=== PATIENT | female | born 1970 | race Caucasian/White ===

== ENCOUNTER 2023-05-05 10:53 | Outpatient (CLI) | payer OTHER, SELFPAY | END 2023-05-05 10:54 | disposition home or self-care (01) | PROVIDERS: Visit Provider Family Medicine | DX: I10 Essential (primary) hypertension (principal); R10.13 Epigastric pain; G89.29 Other chronic pain | CPT/HCPCS: 80053; 86140 ==

== ENCOUNTER 2023-05-13 06:28 | Outpatient (CLI) | payer OTHER, SELFPAY ==
--- NOTE | 2023-05-13 07:55 | W.ANESCHARGE ---
Anesthesia Charges Start Date/Time Anesthesia Start Date: 05/13/23 Anesthesia Start Time: 07:15 Stop Date/Time Anesthesia Stop Date: 05/13/23 Anesthesia Stop Time: 07:37
--- NOTE | 2023-05-13 11:41 | W.ANESCHARGE ---
Anesthesia Charges Start Date/Time Anesthesia Start Date: 05/13/23 Anesthesia Start Time: 07:15 Stop Date/Time Anesthesia Stop Date: 05/13/23 Anesthesia Stop Time: 07:37
== END 2023-05-13 06:29 | disposition home or self-care (01) ==
LOC: OP CLINIC 06:28
PROVIDERS: PCP Family Medicine; Visit Provider Surgery
DX: R19.8 Other specified symptoms and signs involving the digestive system and abdomen (principal)
CPT/HCPCS: 00731; 43235; J2704; J3490

== ENCOUNTER 2023-05-14 08:31 | Outpatient (CLI) | payer OTHER, SELFPAY ==
--- NOTE | 2023-05-14 09:00 | CRLHL7_ITS ---
For Patients: As a result of the Century Cures Act, medical imaging exams and procedure reports are released immediately into your electronic medical record. You may view this report before your referring provider. If you have questions, please contact your health care provider. Indication: EPIGASTRIC PAIN Technique: Postcontrast CT abdomen and pelvis. 55 cc Isovue 370 intravenous contrast. Please note that all CT scans at this facility use dose modulation, iterative reconstruction, and/or weight-based dosing when appropriate to reduce radiation dose to as low as reasonably achievable. Comparison: None Findings: Lung bases are clear. No intrahepatic masses. Spleen is normal. No ascites. Adrenal glands normal. Nonobstructing stone upper pole right kidney measuring 4.1 millimeters. Left kidney normal. The pancreas is normal. Normal gallbladder. The bladder is normal. Normal uterus and ovaries. The appendix is normal. No bowel obstruction or free fluid. No abscess. Degenerative disc disease L5-S1 with discogenic sclerosis. No fracture. Degenerative changes at both hips. Impression: Nonobstructing 4.1 millimeter stone right kidney. Degenerative disc disease L5-S1 and degenerative joint disease of both hips. Please note that all CT scans at this facility use dose modulation, iterative reconstruction, and/or weight-based dosing when appropriate to reduce radiation dose to as low as reasonably achievable. Dictated by Montez Ambrose MD @ 05/14/2023 12:56:51 PM (Electronically Signed)
== END 2023-05-14 08:32 | disposition home or self-care (01) ==
LOC: CT 08:32
PROVIDERS: PCP Family Medicine; Visit Provider Family Medicine
DX: R10.13 Epigastric pain (principal); N20.0 Calculus of kidney; M51.37 Other intervertebral disc degeneration, lumbosacral region; G89.29 Other chronic pain; Z80.0 Family history of malignant neoplasm of digestive organs
CPT/HCPCS: 74177; Q9967

== ENCOUNTER 2023-11-27 08:06 | Outpatient (CLI) | payer OTHER, SELFPAY ==
--- OUTSIDE RECORDS SUMMARY | 2023-12-01 13:39 | XMS_ITS | Clinical Summary ---
Author Organization [facility] Address [place], [place] [address] Care Team Providers Care Clerical Office Name Role Phone Quin Velasco MD Primary Care Provider Allergies Active Allergy Reactions Criticality Noted Date Comments Miconazole Nitrate Vaginal Irritation High 4 used monostat in her 20's had severe topical reaction. 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 0 0 Active triamcinolone (ARISTOCORT; KENALOG) 0.1 % creamIndication s:Chronic eczema Apply topically to affected area(s) 2 times daily. 80 g 2 Active lisinopriL (PRINIVIL; ZESTRIL) 10 mg tabletIndicatio ns:HTN (hypertension) TAKE 1 TABLET DAILY 90 Tablet 4 Active EPINEPHrine (EPIPEN) 0.3 mg/0.3 mL auto-injectorIn dications:Nut allergy Inject 0.3 mg intramuscularly one time if needed for Allergic Reaction. 2 Each 4 Active EPINEPHrine (EPIPEN) 0.3 mg/0.3 mL auto-injectorIn dications:Nut allergy Inject 0.3 mg intramuscular one time if needed for Allergic Reaction. 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 Encounters Date Type Department Care Team Description 11/26/2023 Telephone [facility] [address] [place] [phone] Zenobia Hutton, PhD, LP Referral (Psychology) 11/07/2023 7:30 AM CDT Telemedicine [facility] [address] [place] [phone] Zenobia Hutton, PhD, LP [facility] Plan 11/03/[address] [address] Quin Velasco MD Refill Request (Epinephrine) 10/16/2023 9:25 AM CDT Office Visit [address] [address] Kayleigh Krishnan PA Throat Problem 10/16/2023 Travel 10/15/2023 Refill [facility] [address] [place] [address] Quin Velasco MD Refill Request (Lisinopril) from Last 3 Months Immunizations Name Administration Dates Next Due AMB Influenza, (Flumist) Telma e Intranasal,LAIV4 (Flu Clinic Only) 03/31/2013 AMB Influenza, IIV3 (Age >=3 years)(Flu Clinic Only) 04/08/2011 AMB Influenza, IIV4 PF (=>6 mos Flulaval,Fluzone Fluarix)(Flu Clinic Only) 04/11/2016 COVID-19 vaccine (Moderna 100mcg/0.5mL) PF, MDV 04/30/2021,08/16/2020,07/19/2020 Hepatitis B (Adult) 04/08/2011 Influenza RIV4 (Age 18+ Year s) PRESERV FREE 04/03/2022,03/06/2021 Influenza, IIV3 (Age >=3 years) 03/27/2010,05/08,04/12/2004 Influenza, IIV4 03/09/2020,03/21/2015,05/23/2014 Influenza, IIV4 (=>6mos) MDV 03/20/2023, 03/10/2019,04/03/2018, 017 Influenza,LAIV4 Live Intrana ramila (Flumist) 04/07/2012 Td (Age >=7 Years) 11/12/2002 Tdap 06/07/2021,07/04/2011 Zoster (Shingrix-RZV, recombinant) 06/07/2021, Family History Medical History Relation Name Comments Diabetes Brother 1 Cancer Brother 2 hodgkins lympho ma Cancer Brother 3 stomach; Stage 4 Other Brother 4 colon polyp Hyperlipidemia Father Hypertension Father Other Father etoh abuse Stroke Father Diabetes Maternal Aunt 1 Diabetes Maternal Aunt 2 Cancer Maternal Grandmother uterine and breast Cancer-breast Maternal Grandmother Diabetes Maternal Grandmother Osteoporosis Maternal Grandmother Alcohol/Drug Paternal Grandfather Cancer-ovarian No Family History Relation Name Status Comments Brother 1 Brother 2 Brother 3 Brother 4 Father Maternal Aunt 1 Maternal Aunt 2 Maternal Grandmother Paternal Grandfather Social History Tobacco Use Types Packs/Day Years Used Date Smoking Tobacco: Never Smokeless Tobacco: Never Tobacco Cessation:Counseling Given: Yes Alcohol Use Standard Drinks/Week Comments Yes 0 (1 standard drink = 0.6 oz pure alcohol) 1-2 drinks daily - working on cutting this down PHQ-2 Answer Date Recorded PHQ-2 TOTAL SCORE 0 10/10/2022 Social Connections Answer Date Recorded Frequency of Communication with Friends and Fami ly 0 07/16/2023 Financial Resource Strain Answer Date R ecorded Difficulty of Paying Living Expenses 3 07/16/2023 Difficulty of Paying Living Expenses Not on file 07/16/2023 Food Insecurity Answer Date Recorded Worried About Running Out of Food in the Last Ye ar 1 07/16/2023 Transportation Needs Answer Date Record ed Lack of Transportation (Medical) 1 07/16/2023 Housing Stability Answer Date Recorded Unable to Pay for Housing in the Last Year 1 07/16/2023 Sex and Gender Information Value Date Recorded Sex Assigned at Not on file Gender Identity Not on file Sexual Orientation Not on file Obstetrics History Para Term AB IAB SAB Ectopic Multiple Livin g Live Births 4 2 1 1 3 Date Outcome GA Total Labor Labor/2nd/3rd Weight Sex Type Anes PTL Telma A1 A5 Name Clin SAB IAB Last Filed Vital Signs Vital Sign Reading Time Taken Comments Blood Pressure 130/91 10/16/2023 9:20 AM CDT Pulse 84 10/16/2023 9:20 AM CDT Temperature 36.8 ??C (98.3 ??F) 10/16/2023 9:20 AM CD T Respiratory Rate 16 07/16/2023 9:44 AM [employer]ER Oxygen Saturation 100% 10/16/2023 9:20 AM CDT Inhaled Oxygen Concentration - - Weight 74.8 kg (165 lb) 10/16/2023 9:20 AM CDT Height 165.1 cm (5' 5) 07/16/2023 9:44 AM [employer]ER Body Mass Index 27.46 07/16/2023 9:44 AM [employer]ER [employer]AKER Plan of Treatment Upcoming Encounters Date Type Department Care Team (Late st Contact Info) Description 12/04/2023 2:00 PM CDT Telemedicine [facility] [address] [place] [address] Chris Kwok, [facility] [address] [place] [address] Health Maintenance Due Date Last Done Comments Depression screening for age 12+ 10/11/2023 10/10/2022, 06/07/2021, 09/03/2018, Additional history exists Mammogram for age 45-75 10/11/2023 10/11/19, 06/07/2021, 04/24/2020, Additional history exists Influenza for age 50-64 02/22/2024 03/20/20, 04/03/2022, 03/06/2021, Additional history exists BMI (ht and wt on same day) for age 18+ 07/16/2024 07/16/2023, 12/05/2022, 10/10/2022, Additional history exists Lipids for age 45-75 11/03/2025 11/03/2020, 01/08/2019, 09/03/2016, Additional history exists Colonoscopy through age 75 11/22/202611/22, 11/22/2021, 11/22/2021, Additional history exists Pap test for age 21-65 10/11/2027 , 10/10/2022, 09/03/2016, Additional history exists Tetanus booster 06/07/2031 06/07/2021, 06/23, 11/12/2002 Tdap Completed 06/07/2021, 07/04/2011 Zoster (shingles) series for age 50+ Completed 06/07/2021, 11/03/2020 HIV for age 15-65 Completed 10/10/2022 Hepatitis C screening for age 18-79 Completed 10/10/2022 COVID-19 vaccine series Completed 04/18/20, 09/29/2021, 04/30/2021, Additional history exists Pneumococcal series for age 6-64 Aged Out No longer eligible based on patient's age to complete this topic Procedures Procedure Name Priority Date/Time Associated Diagnosis Comments THROAT RAPID STREP ONLY CLINIC Routine 10/16/2023 9:16 AM CDT Sore throat XR MAMMO VELIA BILAT SCREEN Routine 10/10/2022 11:42 AM CDT Visit for screening mammogram LC HIV-1/O/2, 4TH GENERATION Routine 10/10/2022 11:29 AM CDT Screening for HIV (human immunodeficiency virus) LC HCV ANTIBODY RFX TO QUANT PCR Routine 10/10/2022 11:29 AM CDT Need for hepatitis C screening test HPV THIN PREP Routine 10/10/2022 11:10 AM CDT Screening for cervical cancer COLONOSCOPY SCREENING Routine 11/22/2021 8:43 AM CDT Screening for colon cancer LIPID PANEL W REFLEX MEASURED LDL Routine 11/03/2020 3:28 PM CDT Lipid screening from Last 3 Months or Most Recently Relevant to Health Maintenance Results * THROAT RAPID STREP ONLY CLINIC (10/16/2023 9:16 AM CDT) THROAT RAPID STREP A ANTIGEN Negative 10/16/2023 9:26 AM CDT [facility] Throat SPECIMEN FROM THROAT / Unknown Non-Blood / Unknown 10/16/2023 9:16 AM CDT 10/16/2023 9:18 AM CDT Kayleigh CHASE MICROBIOLOGY [facility] [address] [place] [address], * XR MAMMO VELIA BILAT SCREEN (10/10/2022 11:42 AM CDT) Anatomical Region Laterality Modality BREASTS, Breast Left, Breast Right Bilateral Mammography Impressions 10/10/2022 4:00 PM CDT ??There is no radiographic evidence for malignancy. ??Recommend annual mammograms. MAMMOGRAM ASSESSMENT: ??ACR 1 Negative PATIENTS: You will also receive a letter with your examination results in an easy to read format. ??If you have questions about your results, please contact your referring provider. Narrative 10/10/2022 4:00 PM CDT For Patients: As a result of the Cures Act, medical imaging exams and procedure reports are released immediately into your electronic medical record. You may view this report before your referring provider. If you have questions, please contact your health care provider. XR MAMMO VELIA BILAT SCREEN [[id number]] CLINICAL HISTORY: ??This is an asymptomatic 52 y.o. patient. INDICATION FOR EXAM: Mammogram Screening. TECHNIQUE: CC & MLO views were obtained. ??This study was evaluated with the assistance of Computer-Aided Detection. Breast Tomosynthesis was used in interpretation. COMPARISON FILM: Yes 06/07/21 [employer] 04/24/20 [facility] FINDINGS: ??The breasts have scattered areas of fibroglandular density. There are no dominant masses, suspicious micro calcifications or areas of architectural distortion. Quin Velasco MD MAMMO * LC HCV ANTIBODY RFX TO QUANT PCR (10/10/2022 11:29 AM CDT) Pathologist [facility] HCV Ab Non Reactive Non Reactive 10/15/2022 4:07 AM CDT [facility] ([facility]) Blood BLOOD SPECIMEN / Unknown Venipuncture / Unknown 10/10/2022 11:29 AM CDT 10/10/2022 11:30 AM CDT Narrative [facility] ([facility]) - 10/15/2022 4:07 AM CDT Performed at: ??[address] ??[id number] Cake Winder: Jorge Mixon MD, Phone: ??[phone] Quin Velasco MD LABORATORY Performing Organization Address City/State/[facility] Co de Phone Number [facility] ([facility]) [address] [place] [address], * LC HIV-1/O/2, 4TH GENERATION (10/10/2022 11:29 AM CDT) Pathologist [facility] HIV Scr 4th Gen Non Reactive Non Reactive 10/14/2022 10:06 PM CDT [facility] ([facility]) Comment: HIV Negative HIV-1/HIV-2 antibodies and HIV-1 p24 antigen were NOT detected. There is no laboratory evidence of HIV infection. Blood BLOOD SPECIMEN / Unknown Venipuncture / Unknown 10/10/2022 11:29 AM CDT 10/10/2022 11:30 AM CDT [facility] ([facility]) - 10/14/2022 10:06 PM CDT Performed at: ??[address] ??[id number] Cake Winder: Jorge Mixon MD, Phone: ??[phone] Quin Velasco MD LABORATORY [facility] ([facility]) [address] [place] [address], * HPV HIGH RISK (10/10/2022 11:10 AM CDT) TYPE 16 Negative Negative 10/15/2022 11:02 AM CDT [facility] TYPE 18 Negative Negative 10/15/2022 11:02 AM CDT [facility] OTHER HIGH RISK TYPES Negative Negative 10/15/2022 11:02 AM CDT [facility] Other (Cervical) Non-Blood / Unknown 10/10/2022 11:10 AM CDT 10/11/2022 6:34 PM CDT Narrative [facility] - 10/15/2022 11:02 AM CDT HPV types 16, 18, 31, 33, 35, 39, 45, 51, 52, 56, 58, 59, 66 and 68 DNA were undetectable or below the pre-set threshold. Methodology: Chilo Arlene 4800 HPV Test Quin Velasco MD MICROBIOLOGY Performing Organization Address City/[facility]/ZIP Co de Phone Number [facility] [address] [place] [address], * COLONOSCOPY (11/22/2021 8:54 AM CDT) 11/22/2021 8:54 AM CDT Narrative Transcriptions Andrei Lucia MD - 11/22/2021 10:04 AM CDT Patient Name: Leonor Gongora Procedure Date: 11/22/2021 Gender: Female Date of : 1970 Admit Type: Outpatient Procedure: Colonoscopy Proceduralist: Andrei Lucia MD , Dasia Naranjo, RN(Nurse) Referring MD: Quin Velasco Indications/Pre-Op Diagnosis: Colon cancer screening in patient atincreased risk: Family history of 1st-degree relative with colon polyps before age 60 years, Last colonoscopy: September 2012 Medications: Fentanyl 200 micrograms IV, Midazolam 4 mgIV, The level of sedation administered wasmoderate Procedure Description: The patient had risks, benefits and alternatives explained to andgave informed consent. The patient had a stable cardiopulmonary status and judged an adequate candidate for conscious sedation. The [id number] was passed through the anus and advanced tothe cecum, identified by appendiceal orifice and ileocecal valve. The colonoscopy was performed without difficulty. The patient toleratedthe procedure well. The quality of the bowel preparation was good. The ileocecal valve, appendiceal orifice, and rectum were photographed. Complications: No immediate complications. Estimated Blood Loss & Specimen: Estimated blood loss: none. Specimen collected - None Findings: The perianal and digital rectal examinations were normal. The entire examined colon appeared normal on direct and retroflexion views. Impressions/Post-Op Diagnosis: - The entire examined colon is normal on direct and retroflexionviews. - No specimens collected. Recommendation: - Patient has a contact number available for emergencies. The signsand symptoms of potential delayed complications were discussed with the patient. Return to normal activities tomorrow. Written discharge instructions were provided to the patient. - Resume previous diet. - Continue present medications. - Repeat colonoscopy in 5 years for screening purposes if the patient has a first degree relative who is less than 60 years of age with a colorectal cancer or with an advanced adenomatous polyp (adenomagreater than 1 cm, adenoma with tubulovillous/villous histology, adenoma with high grade dysplasia). Moderate Sedation: Moderate (conscious) sedation was administered by the endoscopy nurse and supervised by the endoscopist. The following parameters were monitored: oxygen saturation, heart rate, respiratory rate, blood pressure, adequacy of pulmonary ventilation and reponse to care. Please refer to the patient's medical record flowsheets and nursing notes for moderate sedation details. Total physician intraservice time was 20 minutes. Andrei Lucia MD 11/22/2021 10:04:35 AM This report has been signed electronically. Note Initiated On: 11/22/2021 8:54 AM Procedure Code(s): --- Professional --- 42145, Colonoscopy, flexible; diagnostic, including collection of specimen(s) bybrushing or washing, when performed (separateprocedure) Diagnosis Code(s): --- Professional --- Z83.71, Family history of colonic polyps CPT copyright 2020 [employer]. All rights reserved. The codes documented in this report are preliminary and upon senior linux administrator reviewmay be revised to meet current compliance requirements. Scope In: 9:31:39 AM Scope Withdrawal Time 0 hours 6 minutes 43 seconds Scope Out: 9:49:45 AM Andrei Lucia MD PROCEDURE ORD * LIPID PANEL W REFLEX MEASURED LDL (11/03/2020 3:28 PM CDT) CHOLESTEROL,TOTAL 185 100 - 199 mg/dL 11/03/2020 8:44 PM CDT [facility] TRIGLYCERIDES 117 <150 mg/dL 11/03/2020 8:44 PM CDT [facility] HDL CHOLESTEROL 66 >40 mg/dL 8:44 PM CDT [facility] NON-HDL CHOLESTEROL 119 <145 mg/dl 11/03/2020 8:44 PM CDT [facility] CHOL/HDL RATIO 2.80 <4.50 11/03/2020 8:44 PM CDT [facility] LDL CHOLESTEROL 96 <=130 mg/dL 11/03/2020 8:44 PM CDT [facility] VLDL CHOLESTEROL 23 mg/dL 11/04/19 8:44 PM CDT [facility] PROVIDER ORDERED STATUS RANDOM 11/03/2020 8:44 PM CDT [facility] Blood BLOOD SPECIMEN / Unknown Venipuncture / Unknown 11/03/2020 3:28 PM CDT 11/03/2020 3:28 PM CDT Quin Velasco MD CHEMISTRY [facility] [address] [place] [address], [place] from Last 3 Months or Most Recently Relevant to Health Maintenance Care Teams Clerical Office Relationship Specialty Start Date End Date Quin Velasco MD [facility] [place], [place] [id number] PCP - General Family Practice 04/08/11
== END 2023-11-27 08:07 | disposition home or self-care (01) ==
LOC: NFLDREF 12-01 13:37
PROVIDERS: PCP Internal Medicine; Referring Provider Family Medicine; Visit Provider Internal Medicine
DX: I10 Essential (primary) hypertension (principal); Z13.220 Encounter for screening for lipoid disorders
CPT/HCPCS: 80053; 80061

== ENCOUNTER 2024-03-01 12:52 | Outpatient (CLI) | payer OTHER, SELFPAY ==
--- OUTSIDE RECORDS SUMMARY | 2024-03-01 12:54 | XMS_ITS | Clinical Summary ---
Author Organization [employer] [facility] Address [place], [place] [address] Care Team Providers Care Automotive Tire Tester Name Role Phone Quin Velasco MD Primary Care Provider Allergies Active Allergy Reactions Criticality Noted Date Comments Miconazole Nitrate Vaginal Irritation High 4 used monostat in her 20's had severe topical reaction. 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 0 10/02/2009 Active triamcinolone (ARISTOCORT; KENALOG) 0.1 % creamIndications: Chronic eczema Apply topically to affected area(s) 2 times daily. 80 g 08/16/2021 Active EPINEPHrine (EPIPEN) 0.3 mg/0.3 mL auto-injectorIndi cations:Nut allergy Inject 0.3 mg intramuscularly one time if needed for Allergic Reaction. 2 Each 11/04/2023 Active lisinopriL (PRINIVIL; ZESTRIL) 10 mg tabletIndications :HTN (hypertension) TAKE 1 TABLET DAILY 30 Tablet 01/16/2024 Active Active Problems Problem Noted Date Diagnosed Date Pap smear for cervical cancer screening 11/12/19 23 Overview (11/11/2022): 09/2022 NIL/HPV negative Plan: Pap/HPV due 09/2027 Family history of colonic polyps 09/22/2012 Overview (11/22/2021): Colonoscopy 09/2012 normal repeat at age 48, then every 5 years Colonoscopy 11/2021 normal, repeat in 5 years Abdominal pain, epigastric 08/26/2012 Overview (08/26/2012): EGD 08/2012 normal Dysthymic disorder 06/18/2007 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 Encounters Date Type Department Care Team Description 01/13/2024 Refill [facility] [address] [place] [address] Quin Velasco MD Refill Request (Lisinopril) 01/05/2024 Telephone [facility] [address] [place] [phone] Zenobia Hutton, PhD, LP Questions (fyi to provider ) 01/02/2024 8:15 AM CDT Telemedicine [facility] [address] [place] [phone] Zenobia Hutton, PhD, LP Family Therapy 01/02/2024 Travel 12/11/2023 1:00 PM CDT [facility]icine [facility] [address] [place] [address] Ping Hurley, [facility] Mental Health Intake; Telehealth from Last 3 Months Immunizations Name Administration [...] PHQ-2 Answer Date Recorded PHQ-2 TOTAL SCORE 6 12/11/2023 Social Connections Answer Date Recorded Frequency of [...] T Respiratory Rate 16 07/16/2023 9:44 AM ACID WASH OPERATOR Oxygen Saturation 100% 10/16/2023 9:20 AM CDT Inhaled Oxygen Concentration - - Weight 74.8 kg (165 lb) 10/16/2023 9:20 AM CDT Height 165.1 cm (5' 5) 07/16/2023 9:44 AM ACID WASH OPERATOR Body Mass Index 27.46 07/16/2023 9:44 AM ACID WASH OPERATOR Plan of Treatment Health Maintenance Due Date Last Done Comments Mammogram for age 45-75 10/11/2023 10/11/19, 06/07/2021, 04/24/2020, Additional history exists Influenza for age 50-64 02/22/2024 03/20/20, 04/03/2022, 03/06/2021, Additional history exists BMI (ht and wt on same day) for age 18+ 07/16/2024 07/16/2023, 12/05/2022, 10/10/2022, Additional history exists Depression screening for age 12+ 12/10/2024 12/11/2023, 10/10/2022, 06/07/2021, Additional history exists Lipids for age 45-75 [...] 18-79 Completed 10/10/2022 COVID-19 vaccine series Completed 04/18/20 23, 09/29/2021, 04/30/2021, Additional history exists Pneumococcal series for age 6-64 Aged Out No longer eligible based on patient's age to complete this topic Procedures Procedure Name Priority Date/Time Associated Diagnosis Comments XR MAMMO VELIA BILAT SCREEN Routine 10/10/2022 [...] Recently Relevant to Health Maintenance Results * XR MAMMO VELIA BILAT SCREEN (10/10/2022 [...] For Patients: As a result of the Century Cures Act, medical imaging exams and procedure reports are released immediately into your electronic medical record. You may view this report before your referring provider. If you have questions, please contact your health care provider. XR MAMMO VELIA BILAT SCREEN [[id number]] CLINICAL HISTORY: ??This is an asymptomatic 52 y.o. patient. INDICATION FOR EXAM: Mammogram Screening. TECHNIQUE: CC & MLO views were obtained. ??This study was evaluated with the assistance of Computer-Aided Detection. Breast Tomosynthesis was used in interpretation. COMPARISON FILM: Yes 06/07/21 [facility] 04/24/20 [facility] FINDINGS: ??The breasts have scattered areas of fibroglandular density. There are no dominant masses, suspicious micro calcifications or areas of architectural distortion. Quin Velasco MD MAMMO * LC HCV ANTIBODY RFX TO QUANT PCR (10/10/2022 11:29 AM CDT) Pathologist [facility] HCV Ab Non Reactive Non Reactive 10/15/2022 4:07 AM CDT [facility] ([facility]) Blood BLOOD SPECIMEN / Unknown Venipuncture / Unknown 10/10/2022 11:29 AM CDT 10/10/2022 11:30 AM CDT Narrative [facility] ([facility]) - 10/15/2022 4:07 AM CDT Performed at: ??[address] ??[id number] Rn Research: Jorge Mixon MD, Phone: ??[phone] Quin Velasco MD LABORATORY [facility] ([facility]) [address] [place] [address], * LC HIV-1/O/2, 4TH GENERATION (10/10/2022 11:29 AM CDT) [facility] HIV Scr 4th Gen Non Reactive Non Reactive 10/14/2022 10:06 PM CDT [facility] ([facility]) Comment: HIV Negative HIV-1/HIV-2 antibodies and HIV-1 p24 antigen were NOT detected. There is no laboratory evidence of HIV infection. Blood BLOOD SPECIMEN / Unknown Venipuncture / Unknown 10/10/2022 11:29 AM CDT 10/10/2022 11:30 AM CDT Narrative [facility] ([facility]) - 10/14/2022 10:06 PM CDT Performed at: ??[address] ??[id number] Rn Research: Jorge Mixon MD, Phone: ??[phone] Quin Velasco MD LABORATORY [facility] ([facility]) [address] [place] [address] * HPV HIGH RISK (10/10/2022 11:10 AM CDT) TYPE 16 Negative Negative 10/15/2022 11:02 AM CDT [facility]AL LABORATORY TYPE 18 Negative Negative 10/15/2022 11:02 AM CDT [facility] TRAL LABORATORY OTHER HIGH RISK TYPES Negative Negative 10/15/2022 11:02 AM CDT [facility] TRAL LABORATORY Other (Cervical) Non-Blood / Unknown 10/10/2022 11:10 AM CDT 10/11/2022 6:34 PM CDT Narrative [facility] - 10/15/2022 11:02 AM CDT HPV types 16, 18, 31, 33, 35, 39, 45, 51, 52, 56, 58, 59, 66 and 68 DNA were undetectable or below the pre-set threshold. Methodology: Chilo Arlene 4800 HPV Test Quin Velasco MD MICROBIOLOGY [facility] [address] [place] [address], * COLONOSCOPY (11/22/2021 8:54 AM CDT) 11/22/2021 [...] adequate candidate for conscious sedation. The PCF-[id number] [id number] was passed through the anus and advanced [...] 8:54 AM Procedure Code(s): --- Professional --- 56742, Colonoscopy, flexible; diagnostic, including collection of specimen(s) bybrushing or washing, when performed (separateprocedure) Diagnosis Code(s): --- Professional --- Z83.71, Family history of colonic polyps CPT copyright 2020 [employer]. All rights reserved. The codes documented in this report are preliminary and upon rental sales agent reviewmay be revised to meet current compliance requirements. Scope In: 9:31:39 AM Scope Withdrawal Time 0 hours 6 minutes 43 seconds Scope Out: 9:49:45 AM Andrei Lucia MD PROCEDURE ORD * LIPID PANEL W REFLEX MEASURED LDL (11/03/2020 3:28 PM CDT) CHOLESTEROL,TOTAL 185 100 - 199 mg/dL 11/03/2020 8:44 PM CDT [facility] TRIGLYCERIDES 117 <150 mg/dL 11/03/2020 8:44 PM CDT [facility]AL LAB[facility]ORY HDL CHOLESTEROL 66 >40 mg/dL 8:44 PM CDT [facility] TRAL LABORATORY NON-HDL CHOLESTEROL 119 <145 mg/dl 11/03/2020 8:44 PM CDT [facility] TRAL LABORATORY CHOL/HDL RATIO 2.80 <4.50 11/03/2020 8:44 PM CDT [facility] TRAL LABORATORY LDL CHOLESTEROL 96 <=130 mg/dL 11/03/2020 8:44 PM CDT [facility] TRAL LABORATORY VLDL CHOLESTEROL 23 mg/dL 11/04/19 8:44 PM CDT [facility] TRAL LABORATORY PROVIDER ORDERED STATUS RANDOM 11/03/2020 8:44 PM CDT [facility] TRAL LABORATORY Blood BLOOD SPECIMEN / Unknown Venipuncture / Unknown 11/03/2020 3:28 PM CDT 11/03/2020 3:28 PM CDT Quin Velasco MD [facility]Y [facility] [address] [place] [address], [place] from Last 3 Months or Most Recently Relevant to Health Maintenance Care Teams Automotive Tire Tester Relationship Specialty Start Date End Date Quin Velasco MD [facility] [address] [place], [place] [phone] PCP - General Family Practice 04/08/11
--- NOTE | 2024-03-01 13:00 | CRLHL7_ITS ---
For Patients: As a result of the Century Cures Act, medical imaging exams and procedure reports are released immediately into your electronic medical record. You may view this report before your referring provider. If you have questions, please contact your health care provider. BILATERAL SCREENING MAMMOGRAM WITH COMPUTER-AIDED DETECTION AND TOMOSYNTHESIS TECHNIQUE: CC and MLO views were obtained. These mammographic images have been obtained using full-field digital technique. These mammographic images were interpreted with the benefit of computer-aided detection. Breast Tomosynthesis was used in this interpretation. COMPARISON FILM: 10/10/22, 06/07/21, 04/24/20. FINDINGS: There are scattered areas of fibroglandular density. IMPRESSION: There is no radiographic evidence for malignancy. ASSESSMENT: BI-RADS Category 1: Negative RECOMMENDATION: Routine screening mammogram in 1 year. A lay language report of this examination will be provided to the patient. Montez Ambrose M.D. Diagnostic Radiologist [email or web address] SP/Dictated by: Montez Ambrose MD @ 03/04/2024 1:04:00 PM (Electronically Signed)
== END 2024-03-01 12:53 | disposition home or self-care (01) ==
LOC: MAMMO 12:52
PROVIDERS: PCP Internal Medicine; Visit Provider Internal Medicine
DX: Z12.31 Encounter for screening mammogram for malignant neoplasm of breast (principal)
CPT/HCPCS: 77063; 77067

== ENCOUNTER 2025-02-09 12:31 | Emergency (ER) | payer OTHER, SELFPAY ==
--- OUTSIDE RECORDS SUMMARY | 2025-02-09 12:34 | XMS_ITS | Clinical Summary ---
Author Organization [employer] [facility] Address [address] [place] [address] Care Team Providers Care Financial Services Sales Representative Name Role Phone Quin Velasco MD Primary Care Provider Allergies Active Allergy Reactions Criticality Noted Date Comments Miconazole Nitrate Vaginal Irritation High 4 used monostat in her 20's had severe topical reaction. 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 0 0 Active lisinopriL (PRINIVIL; ZESTRIL) 10 mg tabletIndicati ons:HTN (hypertension) TAKE 1 TABLET DAILY 30 Tablet 4 Active oxyCODONE (ROXICODONE) 5 mg immediate release tabletIndicati ons:Postoperat milli pain Take 1 Tablet (5 mg) by mouth every 6 hours if needed for Pain. 15 Tablet 5 Active EPINEPHrine 0.3 mg/0.3 mL auto-injectorI ndications:Nut allergy Inject 0.3 mg (1 Pen) intramuscular each time if needed for Allergic Reaction. 1 Each 5 Active Active Problems Problem Noted Date Diagnosed [...] Encounters Date Type Department Care Team Description 02/09/2025 Nurse Triage [facility] [address] [place], [place] [phone] Quin Velasco MD from Last 3 Months Immunizations Immunization Administration Dates Next Due AMB Influenza, (Flumist) [...] IIV4 03/09/2020,03/21/2015,05/23/2014 Influenza, IIV4 (=>6mos) MDV 03/20/2023, 03/10/2019,04/03/2018,2016 Influenza,LAIV4 Live Intrana ramila (Flumist) 04/07/2012 Td [...] PHQ-2 Answer Date Recorded PHQ-2 TOTAL SCORE 2 03/22/2024 Social Connections Answer Date Recorded Do you often feel lonely or isolated from those around you? 0 07/16/2023 Financial Resource Strain Answer Date R ecorded Difficulty of Paying Living Expenses 3 07/16/2023 Difficulty of Paying Living Expenses Not on file 07/16/2023 Food Insecurity Answer Date Recorded Do you worry your food will run out before you are able to buy more? 1 07/16/2023 Transportation Needs Answer Date Record ed Does lack of transportation keep you from medica l appointments? 1 07/16/2023 Does lack of transportation keep you from work, meetings or getting things that you need? 1 07/16/2023 Housing Stability Answer Date Recorded What is your housing situation today? 1 07/16/2023 Utilities Answer Date Recorded Do you have trouble paying f or utilities (for example, heat, electricity, water, phone)? 1 07/16/2023 Comments No Sex and Gender Information Value Date Recorded Sex Assigned at Not on file Legal Sex Female 5:45 AM CERTIFIED ADAPTIVE PHYSICAL EDUCATOR Gender Identity Not on file Sexual Orientation Not on file Obstetrics History Para Term AB IAB SAB Ectopic Multiple Livin g Live Births 4 2 1 1 3 Date Outcome GA Total Labor Labor/2nd/3rd Weight Sex Type Anes PTL Telma A1 A5 Name Clin SAB IAB Last Filed Vital Signs Vital Sign Reading Time Taken Comments Blood Pressure 134/88 04/12/2024 8:09 AM CDT Pulse 92 04/12/2024 8:09 AM CDT Temperature 36.7 C (98.1 F) 04/12/2024 8:09 AM CDT Respiratory Rate 16 07/16/2023 9:44 AM CERTIFIED ADAPTIVE PHYSICAL EDUCATOR Oxygen Saturation 100% 04/12/2024 8:09 AM CDT Inhaled Oxygen Concentration - - Weight 71.2 kg (157 lb) 04/12/2024 8:09 AM CDT s andals on Height 165.1 cm (5' 5) 07/16/2023 9:44 AM CERTIFIED ADAPTIVE PHYSICAL EDUCATOR Body Mass Index 26.13 07/16/2023 9:44 AM CERTIFIED ADAPTIVE PHYSICAL EDUCATOR Plan of Treatment Upcoming Encounters Date Type Department Care Team (Late st Contact Info) Description 03/07/2025 5:30 PM CDT Telemedicine [facility] [address] [place] [phone] Zenobia Hutton, PhD, LP [address] [place] [address] Health Maintenance Due Date Last Done Comments Hepatitis B series for 19+ ( 2 of 3 - 19+ 3-dose series) 05/06/2011 04/08/2011 Pneumococcal series for age 50+ (1 of 1 - PCV) 2018 Mammogram for age 45-75 10/11/2023 10/11/19 23, 06/07/2021, 04/24/2020, Additional history exists BMI (ht and wt on same day) for age 18+ 07/16/2024 07/16/2023, 12/05/2022, 10/10/2022, Additional history exists Influenza Vaccine (#1) 2025 , 04/03/2022, 03/06/2021, Additional history exists Depression screening for age 12+ 03/22/2025 03/22/2024, 12/11/2023, 10/10/2022, Additional history exists Lipids for age 45-75 11/03/2025 11/03/2020, 01/08/2019, 09/03/2016, Additional history exists Colonoscopy through age 75 11/22/202611/22, 11/22/2021, 11/22/2021, Additional history exists Pap test for age 21-65 10/11/2027 , 10/10/2022, 09/03/2016, Additional history exists Tetanus booster 06/07/2031 06/07/2021, 06/23, 11/12/2002 Zoster (shingles) series for age 50+ Completed 06/07/2021, 11/03/2020 HIV for age 15-65 Completed 10/10/2022 Hepatitis C screening for ag e 18-79 Completed 10/10/2022 COVID-19 vaccine series Completed 03/05/20 24, 04/18/2023, 09/29/2021, Additional history exists Procedures Procedure Name Priority Date/Time Associated Diagnosis Comments XR MAMMO VELIA BILAT SCREEN Routine 10/10/2022 11:42 AM CDT Visit for screening mammogram LC HIV-1/O/2, 4TH GENERATION Routine 10/10/2022 11:29 AM CDT Screening for HIV (human immunodeficiency virus) LC HCV ANTIBODY RFX TO QUANT PCR Routine 10/10/2022 11:29 AM CDT Need for hepatitis C screening test HPV HIGH RISK Routine 10/10/2022 11:10 AM CDT Screening for [...] Bilateral Mammography Impressions 10/10/2022 4:00 PM CDT There is no radiographic evidence for malignancy. Recommend annual mammograms. MAMMOGRAM ASSESSMENT: ACR 1 Negative PATIENTS: You will also receive a letter with your examination results in an easy to read format. If you have questions about your results, please [...] care provider. XR MAMMO VELIA BILAT SCREEN [[id number]] CLINICAL HISTORY: This is an asymptomatic 52 y.o. patient. INDICATION FOR EXAM: Mammogram Screening. TECHNIQUE: CC & MLO views were obtained. This study was evaluated with the assistance of Computer-Aided Detection. Breast Tomosynthesis was used in interpretation. COMPARISON FILM: Yes 06/07/21 [facility] 04/24/20 [facility] FINDINGS: The breasts have scattered areas of fibroglandular density. There are no dominant masses, suspicious micro calcifications or areas of architectural distortion. us Quin Velasco MD MAMMO Final R esult * LC HCV ANTIBODY RFX TO QUANT PCR (10/10/2022 11:29 AM CDT) HCV Ab Non Reactive Non Reactive 10/15/2022 4:[address] [facility] ([facility]) Blood BLOOD SPECIMEN / Unknown Venipuncture / Unknown 10/10/2022 11:29 AM CDT 10/10/2022 11:30 AM CDT Narrative [facility] ([facility]) - 10/15/2022 4:07 AM CDT Performed at: [address] [place] [id number] Sales Team Manager: Jorge Mixon MD, Phone: [phone] Quin Velasco MD LABORATORY Final R esult [facility] ([facility]) [address] [place] [address], * LC HIV-1/O/2, 4TH GENERATION (10/10/2022 11:29 AM CDT) HIV Scr 4th Gen Non Reactive Non Reactive 10/14/2022 10:06 PM CDT [facility] ([facility]) Comment: HIV Negative HIV-1/HIV-2 antibodies and HIV-1 p24 antigen were NOT detected. There is no laboratory evidence of HIV infection. Blood BLOOD SPECIMEN / Unknown Venipuncture / Unknown 10/10/2022 11:29 AM CDT 10/10/2022 11:30 AM CDT [facility] TEST[facility] ([facility]) - 10/14/2022 10:06 PM CDT Performed at: [address] [place] [id number] Sales Team Manager: Jorge Mixon MD, Phone: [phone] Quin Velasco MD LABORATORY Final R esult Performing Organization Address City/[facility]/ZIP Co de Phone Number [facility] TEST[facility] ([facility]) [address] [place] [phone], * HPV HIGH RISK (10/10/2022 11:10 AM CDT) [facility] TYPE 16 Negative Negative 10/15/2022 11:02 AM CDT [facility] TRAL LABORATORY TYPE 18 Negative Negative 10/15/2022 11:02 AM CDT [facility] TRAL LABORATORY OTHER HIGH RISK TYPES Negative Negative 10/15/2022 11:02 AM CDT [facility] TRAL LABORATORY Other (Cervical) Non-Blood / Unknown 10/10/2022 11:10 AM CDT 10/11/2022 6:34 PM CDT [facility] - 10/15/2022 11:02 AM CDT HPV types 16, 18, 31, 33, 35, 39, 45, 51, 52, 56, 58, 59, 66 and 68 DNA were undetectable or below the pre-set threshold. Methodology: Chilo Arlene 4800 HPV Test us Quin Velasco MD MICROBIOLOGY Final R esult [facility] [address] [place] [address], [place] * COLONOSCOPY (11/22/2021 8:54 AM CDT) 11/22/2021 8:54 AM CDT Narrative Transcriptions Andrei Lucia MD - 11/22/2021 10:04 AM CDT Patient Name: Leonor Gongora Procedure Date: 11/22/2021 Gender: Female Date of : 1970 Admit Type: Outpatient Procedure: Colonoscopy Proceduralist: Andrei Lucia MD , Dasia Naranjo RN(Nurse) Referring MD: Quin Velasco Indications/Pre-Op Diagnosis: [...] adequate candidate for conscious sedation. The PCF-Q290AL [id number] was passed through the anus and advanced [...] 8:54 AM Procedure Code(s): --- Professional --- 66388, Colonoscopy, flexible; diagnostic, including collection of specimen(s) bybrushing or washing, when performed (separateprocedure) Diagnosis Code(s): --- Professional --- Z83.71, Family history of colonic polyps CPT copyright 2020 [employer]. All rights reserved. The codes documented in this report are preliminary and upon budget counselor reviewmay be revised to meet current compliance requirements. Scope In: 9:31:39 AM Scope Withdrawal Time 0 hours 6 minutes 43 seconds Scope Out: 9:49:45 AM us Andrei Lucia MD PROCEDURE ORD Final Res ult * LIPID PANEL W REFLEX MEASURED LDL (11/03/2020 3:28 PM CDT) CHOLESTEROL,TOTAL 185 100 - 199 mg/dL 11/03/2020 8:44 PM CDT [facility] TR[facility] LABORATORY TRIGLYCERIDES 117 <150 mg/dL 11/03/2020 8:44 PM CDT [facility] LABOR[facility] HDL CHOLESTEROL 66 >40 mg/dL 8:44 PM CDT [facility] LABORATORY NON-HDL CHOLESTEROL 119 <145 mg/dl 11/03/2020 8:44 PM CDT [facility] TR[facility] LABORATORY CHOL/HDL RATIO 2.80 <4.50 11/03/2020 8:44 PM CDT [facility] TRAL LABORATORY LDL CHOLESTEROL 96 <=130 mg/dL 11/03/2020 8:44 PM CDT [facility] TR[facility] LABORATORY VLDL CHOLESTEROL 23 mg/dL 11/04/19 8:44 PM CDT [facility] TRAL LABORATORY PROVIDER ORDERED STATUS RANDOM 11/03/2020 8:44 PM CDT [facility] TR[facility] LABORATORY Blood BLOOD SPECIMEN / Unknown Venipuncture / Unknown 11/03/2020 3:28 PM CDT 11/03/2020 3:28 PM CDT us Quin Velasco MD CHEMISTRY Final R esult [facility] [address] [place] [address], from Last 3 Months or Most Recently Relevant to Health Maintenance Insurance [employer]OR [id number] Care Teams Financial Services Sales Representative Relationship Specialty Start Date End Date Quin Velasco MD [address] [place] [address] PCP - General Family Practice 04/08/11
[2025-02-09 12:36] VITALS: BP 167/85; PULSE 87; RESP 18; TEMP 36.7; O2SAT 99; BMI 26.6
--- NOTE | 2025-02-09 12:50 | CRLHL7_ITS ---
For Patients: As a result of the Cures Act, medical imaging exams and procedure reports are released immediately into your electronic medical record. You may view this report before your referring provider. If you have questions, please contact your health care provider. Indication: Traumatic right knee pain. Technique: Three views of the right knee. Comparison: None. Findings: Normal alignment. No acute fracture. Mild medial compartment predominant tricompartmental right knee osteoarthritis. No significant effusion. Impression: No acute osseous abnormality. Dictated by Jason Zambrano MD @ 02/09/2025 1:11:32 PM (Electronically Signed)
--- NOTE | 2025-02-09 12:51 | ED.GENADULT ---
HPI - General Adult General Chief complaint: Extremity Pain/Injury, Lower Stated complaint: injury on right knee Time Seen by Provider: 02/09/25 12:33 History of Present Illness HPI narrative: [age] year white female was run into by her 90 lb dog this morning. She put some ice on it she had knee pain she had pain to walk but now she is able to straighten out her knee and it feels a little better little less swollen. She has pain over the lateral aspect of her knee above in blower joint line. She thinks she turned to the left and then the dog hit her on the right side of her lateral knee on the right knee and had a valgus type stress. She has had no real medial or lateral joint line pain. She does describe pain in her right lateral knee. There is no marked effusion that she has noticed she is able to bear weight. She does have crutches. Related Data Home Medications ?Medication ?Instructions ?Recorded ?Confirmed multivitamin 1 tab PO QDAY 05/05/23 02/09/25 Previous Rx's ?Medication ?Instructions ?Recorded lisinopril 10 1 tab PO QDAY #90 tabs 02/05/24 mg-hydrochlorothiazide 12.5 mg tablet Allergies Allergy/AdvReac Type Severity Reaction Status Date / Time tree nut Allergy Severe Anaphylaxis Verified 02/09/25 12:42 Review of Systems Status of ROS: Reports: 6 or more systems reviewed and unremarkable except as noted in History and below [facility] [place] Medical History Obesity ?E66.9 - Obesity, unspecified (ICD-10) Screening due ?Z13.9 - Encounter for screening, unspecified (ICD-10) History of depression ?Z86.59 - Personal history of other mental and behavioral disorders (ICD-10) Family History Mother SCC (squamous cell carcinoma) Melanoma Daughter Ovarian cancer, Onset Age: 17 Social History What is your current living situation?: I presently have a place to live Problems where you live: declined to answer In the past 12 months, utilities in danger of being shut off: no In past 12 months, lack of transportation kept you from medical appts, meetings, work, or getting things needed for daily living: no In the past 12 mos, have been you worried that your food would run out before you had money to buy more?: never true In the past 12 mos, the food you bought just didn't last and you didn't have money to buy more?: never true How often does anyone, including family, friends and others, physically hurt you: never How often does anyone, including family, friends and others, insult or talk down to you: never How often does anyone, including family, friends and others, threaten you with harm: never How often does anyone, including family, friends and others, scream or curse at you: never Exam Narrative: Exam Narrative: Objective: The patient is in no apparent distress vital signs are reviewed slightly elevated systolic pressure Alert orient x3 Right knee exam shows mild tenderness just below the joint line on the lateral aspect, no marked swelling, no effusion of the knee. Negative anterior posterior drawer. No real pain with varus valgus stress. Distal CMS intact. Const: Vital Signs, click to edit/add: Vital Signs - 24 hr 02/09/25 12:36 Temperature 98.0 F Pulse Rate [Pulse Oximeter] 87 Respiratory Rate 18 Blood Pressure [Ri ght Upper Arm] 167/85 H Pulse Oximetry 99 Oxygen Delivery Me thod Room Air Course Vital Signs Vital signs: Initial Vital Signs Temperature 98.0 F 02/09/25 12:36 Temperature Source Temporal Artery Scan 02/09/25 12:36 Pulse Rate 87 02/09/25 12:36 Respiratory Rate 18 02/09/25 12:36 Blood Pressure 167/85 H 02/09/25 12:36 Blood Pressure Mean 112 H 02/09/25 12:36 Blood Pressure Position Sitting 02/09/25 12:36 Pulse Oximetry 99 02/09/25 12:36 Oxygen Delivery Method Room Air 02/09/25 12:36 Vital Signs Temperature 98.0 F 02/09/25 12:36 Pulse Rate 87 02/09/25 12:36 Respiratory Rate 18 02/09/25 12:36 Blood Pressure 167/85 H 02/09/25 12:36 Pulse Oximetry 99 02/09/25 12:36 Oxygen Delivery Method Room Air 02/09/25 12:36 Temperature 98.0 F 02/09/25 12:36 Pulse Rate 87 02/09/25 12:36 Respiratory Rate 18 02/09/25 12:36 Blood Pressure 167/85 H 02/09/25 12:36 Pulse Oximetry 99 02/09/25 12:36 Oxygen Delivery Method Room Air 02/09/25 12:36 Medical Decision Making MDM Narrative Medical decision making narrative: [age] year white female with a valgus stress to her knee from being hit by a dog about a 90 lb dog. Some lateral knee pain. No obvious instability noted or significant effusion. Will check an x-ray. If this is negative then I think a knee immobilizer, icing, Advil or Aleve for the next few days would be appropriate, and follow up with regular doctor. She does have crutches. Disposition pending x-ray results. Addendum 1:00 p.m. x-ray by my review looks negative. Will plan knee immobilizer, crutches, follow up with primary care in 2-3 days, further workup pending clinical improvement. Advil and ice and Tylenol. Discharge Plan Discharge Clinical Impression: Acute pain of right knee Patient Disposition: Home w/ Parent or Adult Condition: Stable Additional Instructions: Crutch walking for the next several days, recheck with her primary care doctor at that time. Knee immobilizer. Icing 5-10 minutes 3 to 5 times a day if he can, Advil or Aleve would be helpful as well as Tylenol as needed. Recheck with regular doctor, further workup if still having pain or problems. Activity Level: Light activity and Use Crutches Discharge Diet: Regular Prescriptions: No Action multivitamin Tablet 1 tab PO QDAY lisinopril-hydrochlorothiazide 10-12.5 mg tablet 1 tab PO QDAY Qty: 90 3RF Follow Up/Referrals: Dinh Diaz MD [Primary Care Provider, Internal Medicine] Stand Alone Forms: [facility] Info Instructions
== END 2025-02-09 13:26 | disposition home or self-care (01) ==
PROVIDERS: Emergency Provider Family Medicine; PCP Internal Medicine
DX: M25.561 Pain in right knee (principal); W54.1XXA Struck by dog, initial encounter
CPT/HCPCS: 73562; 99283; 99284

== ENCOUNTER 2025-05-25 10:00 | Outpatient (CLI) | payer OTHER, SELFPAY ==
--- NOTE | 2025-05-25 10:15 | CRLHL7_ITS ---
For Patients: As a result of the Century Cures Act, medical imaging exams and procedure reports are released immediately into your electronic medical record. You may view this report before your referring provider. If you have questions, please contact your health care provider. INDICATION: BILATERAL SCREENING MAMMOGRAM, ASYMPTOMATIC 55 Y/O FEMALE COMPARISON: 03/01/2024, 10/10/2022, 06/07/2021 TECHNIQUE: Digital mammogram in CC and MLO projections including computer-aided detection (CAD) and tomosynthesis. BREAST COMPOSITION: There are scattered areas of fibroglandular density. FINDINGS: No suspicious findings. ASSESSMENT: BI-RADS 1 Negative RECOMMENDATION: Annual screening mammogram. A lay language report of this examination will be provided to the patient. Dictated by: Montez Ambrose MD @ 05/25/2025 11:45:21 (Electronically Signed)
== END 2025-05-25 10:01 | disposition home or self-care (01) ==
LOC: MAMMO 10:01
PROVIDERS: PCP Internal Medicine; Visit Provider Internal Medicine
DX: Z12.31 Encounter for screening mammogram for malignant neoplasm of breast (principal)
CPT/HCPCS: 77063; 77067

== ENCOUNTER 2025-06-07 08:04 | Outpatient (CLI) | payer OTHER, SELFPAY ==
--- NOTE | 2025-06-07 08:15 | CRLHL7_ITS ---
For Patients: As a result of the 21st Century Cures Act, medical imaging exams and procedure reports are released immediately into your electronic medical record. You may view this report before your referring provider. If you have questions, please contact your health care provider. CLINICAL INDICATION: Right ankle pain. COMPARISON IMAGING STUDIES: None. TECHNICAL: Non-contrast MR of the right ankle. Axial, sagittal and coronal T1, PD, PDFS and STIR images. 1.5 [place] MR scanner. FINDINGS: OSSEOUS STRUCTURES: There is bone marrow edema involving the distal tibia overlying the anterior to central tibial plafond. No discrete fracture. An os trigonum is present with mild degenerative changes at its synchondrosis. No avascular necrosis. JOINT SPACES: As above, there is subchondral bone marrow edema overlying the tibial plafond which could relate to occult chondromalacia, contusion or stress change depending on trauma history. Small focus of subchondral bone marrow edema involving the medial talar dome likely relates to cartilage fissuring. No ankle joint effusion or joint body. Small posterior subtalar joint effusion with subtalar articulations otherwise maintained. The talar-navicular and calcaneocuboid joint spaces are maintained. Joint spaces within the visualized midfoot and at the midfoot-forefoot junction are maintained. LIGAMENTS: Syndesmotic Ligaments: The anterior and posterior syndesmotic ligaments are intact. Lateral Ligaments: The anterior talofibular, calcaneofibular and posterior talofibular ligaments are intact. Medial Ligaments: The deltoid ligament appears edematous suggesting sequelae of moderate grade sprain. Spring Ligaments: Intact. Lisfranc ligament complex: Intact. TENDONS: Flexor Tendons: Localized fluid within the flexor hallucis longus tendon sheath close to the knot of Marlon. Small amount of posterior tibial tendon sheath fluid. No flexor tendon tear or tendinosis. Extensor Tendons: The anterior extensor tendons are intact. Achilles Tendon: Minor posterior calcaneal spurring. There is fusiform non insertional thickening of the Achilles tendon compatible with moderate tendinosis. No significant tendon tear. Peroneal Tendons: The peroneus longus and brevis tendons are intact. TARSAL TUNNEL: No mass or fluid collection within the tarsal tunnel. SINUS TARSI: The structures of the sinus tarsi appear normal. No disruption of the interosseous ligaments or significant effacement of fat. PLANTAR SOFT TISSUES: The plantar fascia is intact. There is no significant plantar calcaneal spur. No atrophy or edema of the abductor digiti minimi muscle belly. OTHER FINDINGS: There is subcutaneous edema involving the ankle, greatest medially. IMPRESSION: 1. Bone marrow edema within the distal tibia overlying the anterior to central tibial plafond. This may relate to contusion from trauma, stress change or occult chondromalacia. 2. Edematous appearance of the deltoid ligament suggesting sequelae of moderate grade sprain. The syndesmotic and lateral ankle ligamentous structures are intact. 3. Fusiform non insertional Achilles tendon thickening compatible with moderate tendinosis. No tendon tear. 4. Os trigonum with secondary degenerative changes at its synchondrosis. Dictated by Prakash Martines MD @ 06/08/2025 10:02:32 AM (Electronically Signed)
== END 2025-06-07 08:05 | disposition home or self-care (01) ==
LOC: MRI 08:04
PROVIDERS: PCP Internal Medicine; Visit Provider Internal Medicine
DX: M25.571 Pain in right ankle and joints of right foot (principal); M76.61 Achilles tendinitis, right leg; S93.421A Sprain of deltoid ligament of right ankle, initial encounter; Q74.2 Other congenital malformations of lower limb(s), including pelvic girdle
CPT/HCPCS: 73721